=== PATIENT | female | born 1995 | race Caucasian/White ===

== ENCOUNTER 2018-03-26 18:15 | Emergency (ER) | payer MEDICAID ==
--- NOTE | 2018-03-26 18:22 | ER Report ---
History and Physical Time Seen By MD: 18:18 HPI/ROS CHIEF COMPLAINT: Left foot injury HISTORY OF PRESENT ILLNESS: 22-year-old female presents ambulatory to the ER complaining of left great toe pain, numbness and tingling after falling. She was carrying to 24 PACS of soda into the house up steps when she stumbled and began to fall. She jammed her right foot and then slammed her left foot toes into the steps. She fell down. She sustained no other injury. She is complaining of 6/10 throbbing pain in her left great toe, aggravated by palpation. She does have good range of motion. She notes some numbness and tingling, which is what caused her to present to the ER. Allergies: Coded Allergies: azithromycin (Verified Allergy, Intermediate, 03/26/18) Home Meds No Active Prescriptions or Reported Meds Reviewed Nurses Notes: Yes Old Medical Records Reviewed: Yes Constitutional Vital Sign - Last 24 Hours 03/26/18 03/26/18 03/26/18 03/26/18 18:18 18:21 18:30 18:45 Temp 98.0 Pulse 82 79 75 Resp 20 B/P (MAP) 137/100 (112) 137/100 Pulse Ox 94 95 94 O2 Delivery Room Air 03/26/18 03/26/18 19:00 19:06 Pulse 72 B/P (MAP) 103/78 (86) Pulse Ox 94 Physical Exam General appearance: Alert no distress. Respiratory: Chest is non tender, lungs are clear to auscultation. Cardiac: Regular rate and rhythm Extremities: Examination of the left foot reveals some bruising over the forefoot. There is no deformity or abrasions noted. All digits are neurovascularly intact. There is some tenderness on palpation of the left great toe. DIFFERENTIAL DIAGNOSIS: After history and physical exam differential diagnosis was considered for sprain, strain, fracture, dislocation, contusion Medical Decision Making EKG/Imaging Imaging X-ray: Three-view left foot was obtained. I viewed the images myself on the PACS system. My interpretation of the images is: No fracture no dislocation or malalignment. The radiologist interpretation had no clinically significant variation from this interpretation. ED Course/Re-evaluation ED Course Patient was admitted to an examination room. H&P was done. The differential diagnoses was considered. On clinical examination. Patient has left foot injury. Diagnostic x-rays are ordered. There is no obvious fracture noted. Patient's advised to conservative treatment plan. She is advised ibuprofen 600 mg 3 times daily. Ice packs for 2 days. Follow-up with primary care if unimproved in 3-5 days. Decision to Disposition Date: Mar 26, 2018 Decision to Disposition Time: 18:37 Depart Departure Latest Vital Signs Vital Signs Date Time Temp Pulse Resp B/P (MAP) Pulse Ox O2 Delivery O2 Flow Rate FiO2 03/26/18 19:06 103/78 (86) 03/26/18 19:00 72 94 03/26/18 18:21 98.0 20 Room Air Impression: Primary Impression: Sprain of left great toe Additional Impression: Contusion of left foot Condition: Improved Disposition: HOME OR SELF-CARE Referrals: MADISON MARTINEZ MD, FARRUKH MD New Scripts No Active Prescriptions or Reported Meds Patient Instructions: Foot Sprain (ED) Additional Instructions: Take ibuprofen 200 mg 3 tablets 3 times a day with food Rest your foot, elevated and apply ice 30 minutes 3-4 times per day Follow-up with primary care if unimproved in 3-5 days Problem Qualifiers Primary Impression: Sprain of left great toe Encounter type: initial encounter Qualified Codes: S93.502A - Unspecified sprain of left great toe, initial encounter Additional Impression: Contusion of left foot Encounter type: initial encounter Qualified Codes: S90.32XA - Contusion of left foot, initial encounter FLAVIA GONZALEZ DO Mar 26, 2018 18:22
[2018-03-26 19:06] VITALS: BP 103/78
--- NOTE | 2018-03-26 19:43 | RADIOLOGY IMAGING REPORT ---
FACILITY: [facility] - [place] PATIENT NAME: Hayde Rodriguez : 1995 MR: [id number] V: [id number] EXAM DATE: ORDERING PHYSICIAN: FLAVIA GONZALEZ TECHNOLOGIST: Location: [facility] [place] Patient: Hayde Rodriguez : 1995 Visit/Account:[id number] Date of Sevice: 03/26/2018 FOOT 3 VIEW LEFT HISTORY: foot injury Three-view examination of the left foot. FINDINGS: No acute bony pathology. Joint spaces well-maintained. Soft tissues unremarkable. Impression 1. Negative left foot Report Dictated By: Gil Roy MD at 03/26/2018 7:38 PM Report E-Signed By: Gil Roy MD at 03/26/2018 7:40 PM WSN:[id number]
== END 2018-03-26 19:09 | disposition home or self-care (01) ==
LOC: ER 18:38
DX: S93.502A Unspecified sprain of left great toe, initial encounter (principal); S90.32XA Contusion of left foot, initial encounter
CPT/HCPCS: 99283